=== PATIENT | male | born 1960 | race Caucasian/White ===

== ENCOUNTER 2020-10-27 06:20 | Day surgery (SDC) | payer BC, OTHER ==
[2020-10-27] MEDS ORDERED: Sodium Chloride 0.9% 1,000 ML IV SCH (07:00)
[2020-10-27] MEDS ORDERED: Midazolam 1 MG/ML 2 ML SDV ONE (07:28)
[2020-10-27] MEDS ORDERED: Propofol 200 MG/20 ML SDV ONE (07:28)
[2020-10-27] MEDS ORDERED: fentaNYL 100 MCG/2 ML SDV ONE (07:28)
[2020-10-27 08:51] VITALS: BP 122/80; PULSE 90
--- NOTE | 2020-10-27 11:41 | OR ---
DATE OF PROCEDURE: 10/27/2020 SURGEON: Bakari Reed MD PROCEDURE: Colonoscopy. FINDINGS: Diverticulosis, mild. COMPLICATIONS: None. CROSS ENTERPRISE INTEGRATOR: None. PREOPERATIVE DIAGNOSIS: Screening colonoscopy. POSTOPERATIVE DIAGNOSIS: Screening colonoscopy. RISKS: Risks, benefits, alternatives, and limitations including, but not limited to, infection, bleeding, and perforation were explained to the patient who wished to proceed. PROCEDURE IN DETAIL: The patient was placed in left lateral decubitus position. Digital rectal exam was performed without abnormality. The scope was introduced and advanced atraumatically to ileocecal valve. A photo was taken. The scope was brought back to the ascending, transverse, descending colon, and retroflexed. No old or new blood. No masses. No polyps. Diverticulosis would be described as mild, mostly limited to sigmoid colon without evidence of diverticulitis or bleeding. No abnormalities when retroflexed. The patient tolerated the procedure well. Greater than 8 minutes was spent removing the scope. Prep was moderately acceptable, approximately 90% luminal surface could be seen with some solid and liquid stool remaining. Bakari Reed MD /[id number]
== END 2020-10-27 09:10 | disposition home or self-care (01) ==
LOC: JP.SDS 06:20
PROVIDERS: ATTEND Surgery
DX: Z12.11 Encounter for screening for malignant neoplasm of colon (principal); K57.30 Diverticulosis of large intestine without perforation or abscess without bleeding; I10 Essential (primary) hypertension; E78.5 Hyperlipidemia, unspecified; J45.909 Unspecified asthma, uncomplicated
CPT/HCPCS: 45378; J2250; J2704; J3010; J7030

== ENCOUNTER 2021-10-29 07:21 | Day surgery (SDC) | payer BC ==
[~2021-10-29 07:21] MED LIST: Sodium Chloride 0.9% 10 ML Syringe FLUSH SCH
[2021-10-29] MEDS ORDERED: Sodium Chloride 0.9% 10 ML Syringe FLUSH SCH (07:45)
[2021-10-29 08:48] VITALS: BP 140/82; PULSE 76
== END 2021-10-29 08:55 | disposition home or self-care (01) ==
LOC: JP.SDS 07:21
PROVIDERS: ATTEND Ophthalmology
DX: H25.11 Age-related nuclear cataract, right eye (principal); I10 Essential (primary) hypertension; E78.5 Hyperlipidemia, unspecified
CPT/HCPCS: 66984; V2632

== ENCOUNTER 2021-11-12 06:20 | Day surgery (SDC) | payer BC ==
[2021-11-12] MEDS ORDERED: Sodium Chloride 0.9% 10 ML Syringe FLUSH PRN ×2 (06:45→07:00)
[2021-11-12] MEDS ORDERED: Midazolam 1 MG/ML 2 ML SDV ONE (07:48)
[2021-11-12] MEDS ORDERED: Sodium Chloride 0.9% 10 ML ONE (07:49)
[2021-11-12 08:13] VITALS: BP 118/85; PULSE 94
== END 2021-11-12 08:24 | disposition home or self-care (01) ==
LOC: JP.SDS 06:20
PROVIDERS: ATTEND Ophthalmology
DX: H25.12 Age-related nuclear cataract, left eye (principal); J45.909 Unspecified asthma, uncomplicated; I10 Essential (primary) hypertension
CPT/HCPCS: J2250; V2632

== ENCOUNTER 2023-05-20 09:58 | Emergency (ER) | payer BC, OTHER ==
[2023-05-20] MEDS ORDERED: LORazepam 2 MG/ML SDV IVPUSH ONE (10:26)
[2023-05-20] MEDS ORDERED: Sodium Chloride 0.9% 1,000 ML IV SCH (10:30)
[2023-05-20 10:42] LABS: HEMATOCRIT 40.6 % (38.4-49.7); HEMOGLOBIN 14.4 g/dL (12.9-16.9); MEAN CORPUSCULAR HEMOGLOBIN 34.1 pg (31.6-35.5); MEAN CORPUSCULAR HGB CONC 35.5 g/dL (31.6-35.5); MEAN CORPUSCULAR VOLUME 96.2 fL (81.4-99.0); RED BLOOD CELL COUNT 4.22 M/uL (4.14-5.76); WHITE BLOOD CELL COUNT,WBC 7.4 K/uL (3.2-11.0)
[2023-05-20 10:56] LABS: PROTHROMBIN TIME 10.1 sec (9.2-10.6)
[2023-05-20 11:10] LABS: A/G RATIO 1.1 (1.2-2.2); ALANINE AMINOTRANSFERASE,ALT 67 U/L (12-78); ALBUMIN 3.8 g/dL (3.4-5.0); ALKALINE PHOSPHATASE 68 U/L (46-116); ANION GAP 15.7 mmol/L (5.0-14.0); ASPARTATE AMNIOTRANSFERASE,AST 50 U/L (15-37); BILIRUBIN TOTAL 0.9 mg/dL (0.2-1.0); BLOOD UREA NITROGEN,BUN 13 mg/dL (7-18); CARBON DIOXIDE,CO2 24 mmol/L (21-32); CHLORIDE,CL 100 mmol/L (100-108); CREATININE 1.2 mg/dL (0.8-1.3); EST CRCL DRUG DOSING (CG) 62.54 mL/min; ESTIMATED GFR 69 mL/min (>60); GLUCOSE RANDOM 97 mg/dL (74-106); POTASSIUM,K 3.7 mmol/L (3.6-5.2); PROTEIN TOTAL,TP 7.4 g/dL (6.4-8.2); SODIUM,NA 136 mmol/L (140-148)
[2023-05-20 13:12] VITALS: BP 145/85; PULSE 80
[2023-05-20 13:29] LABS: APPEARANCE,URINE CLEAR (CLEAR); BILIRUBIN,URINE NEGATIVE (NEGATIVE); COLOR,URINE YELLOW (YELLOW); GLUCOSE,URINE NEGATIVE (NEGATIVE); KETONES,URINE NEGATIVE (NEGATIVE); LEUKOCYTE ESTERASE,URINE NEGATIVE (NEGATIVE); NITRITE,URINE NEGATIVE (NEGATIVE); OCCULT BLOOD,URINE TRACE-INTACT (NEGATIVE); PROTEIN,URINE NEGATIVE (NEGATIVE); UROBILINOGEN,URINE 0.2 EU/dL (0.2-1.0)
[2023-05-20 13:34] LABS: AMORPHOUS SEDIMENT,URINE NOT SEEN; AMPHETAMINES SCREEN, URINE NEGATIVE (NEGATIVE); BACTERIA,URINE NOT SEEN; BARBITURATE SCREEN,URINE NEGATIVE (NEGATIVE); BENZODIAZEPINES SCREEN,URINE NEGATIVE (NEGATIVE); EPITHELIAL CELLS,URINE NOT SEEN; METHADONE SCREEN, URINE NEGATIVE (NEGATIVE); METHAMPHETAMINES SCREEN, URINE NEGATIVE (NEGATIVE); MUCUS,URINE NOT SEEN; OXYCODONE SCREEN,URINE NEGATIVE (NEGATIVE); PROPOXYPHENE SCREEN,URINE NEGATIVE (NEGATIVE); RBC,URINE 0-5 (0-5); THC SCREEN,URINE 50 NG/ML NEGATIVE (NEGATIVE); WBC,URINE 0-5 (0-5)
== END 2023-05-20 14:07 | disposition home or self-care (01) ==
LOC: JP.ED 09:58
DX: F10.10 Alcohol abuse, uncomplicated (principal); I10 Essential (primary) hypertension; E78.00 Pure hypercholesterolemia, unspecified; J45.909 Unspecified asthma, uncomplicated; Z86.16 Personal history of COVID-19; Z79.899 Other long term (current) drug therapy; Y90.8 Blood alcohol level of 240 mg/100 ml or more
CPT/HCPCS: 36415; 80053; 80143; 80305; 80307; 81001; 83605; 83690; 83735; 85027; 85610; 96361; 96374; 99284; J2060; J7030; 99283